=== PATIENT | male | born 1970 | race Hispanic/Latino ===

== ENCOUNTER 2018-06-10 09:31 | Inpatient (IN) | payer OTHER ==
[~2018-06-10] VITALS: Ht 160 cm; Wt 89.9 kg
[~2018-06-10 09:31] MED LIST: ASPIR 8181 MG PO; LIPITOR20 MG PO; LISINOPRIL10 MG PO; TOPROL XL50 MG PO
[2018-06-10] MEDS ORDERED: SODIUM CHLORIDE 0.9% 1000ML 1,000 ML IV STA (09:48)
[2018-06-10] MEDS ORDERED: CLINDAMYCIN 600MG / 50ML 50 ML IV STA (09:55)
[2018-06-10 12:07] LABS: BASOPHILS % 0.1 % (0.0-1.0); HEMATOCRIT 46.4 % (38.2-49.6); HEMOGLOBIN 17.3 g/dL (14.0-18.0); LYMPHOCYTES # (AUTO) 1.3 (1.0-3.2); LYMPHOCYTES % 9.1 % (18.0-39.1); MEAN CORPUSCULAR HEMOGLOBIN 33.1 pg (28-32); MEAN CORPUSCULAR HGB CONC 37.3 g/dL (31-35); MEAN CORPUSCULAR VOLUME 88.9 fL (81-99); MONOCYTES # (AUTO) 0.9 (0.2-0.8); MONOCYTES % 6.4 % (4.4-11.3); NEUTROPHILS # (AUTO) 12.2 (2.1-6.9); NEUTROPHILS % 84.1 % (38.7-80.0); PLATELET COUNT 170 x10e3/uL (140-360); RED BLOOD COUNT 5.22 x10e6/uL (4.3-5.7)
[2018-06-10 12:33] LABS: ALANINE AMINOTRANSFERASE 50 IU/L (0-55); ALBUMIN 4.3 g/dL (3.5-5.0); ALBUMIN/GLOBULIN RATIO 1.1 (0.8-2.0); ALKALINE PHOSPHATASE 62 IU/L (40-150); ANION GAP 18.6 mmol/L (8-16); BLOOD UREA NITROGEN 7 mg/dL (7-26); BUN/CREATININE RATIO 8 (6-25); CALCIUM 9.7 mg/dL (8.4-10.2); CARBON DIOXIDE 22 mmol/L (22-29); CHLORIDE 96 mmol/L (98-107); CREATININE, SERUM 0.85 mg/dL (0.72-1.25); EST GLOMERULAR FILTRATION RATE > 60 ML/MIN (60-); GLUCOSE 272 mg/dL (74-118); POTASSIUM 3.6 mmol/L (3.5-5.1); SODIUM 133 mmol/L (136-145)
[2018-06-10] MEDS ORDERED: ONDANSETRON HCL INJ 2 MG/ML VIAL IV STA (13:45)
[2018-06-10] MEDS ORDERED: MORPHINE SULFATE 2 MG/ML SYR IV STA (13:45)
[2018-06-10] MEDS ORDERED: BUPIVACAINE HCL 0.5% 10ML MPF VIAL INJ ONE (14:30)
--- NOTE | 2018-06-10 14:30 | Diagnostic Imaging Report ---
EXAMINATION: CT of the neck with contrast HISTORY: Facial swelling, tooth infection, evaluate for Ludin's angina. COMPARISON: None TECHNIQUE: Multidetector helical axial images were obtained from the sternal notch through the skull base during intravenous infusion of iodinated contrast material. Images were reconstructed using soft tissue and bone algorithms and were viewed in multiplanar format. Intravenous contrast: 100 mL of Isovue-370. Dose modulation, iterative reconstruction, and/or weight based adjustment of the mA/kV was utilized to reduce the radiation dose to as low as reasonably achievable. FINDINGS: Soft tissues: Dental cavity and periapical lucencies/abscess about the root of tooth #21, with thinning of the lingual cortex and associated overlying soft tissue, the swelling is extending to the left sublingual space, left floor of the mouth and oropharynx, no discrete soft tissue abscess. The airway is preserved and there is no extension of the above-mentioned inflammatory process below the level of the hyoid bone. Mass: None. Nodes: Moderately prominent likely reactive left submandibular and left level 2A, 2B and 3 enhancing lymph nodes Sinuses: Imaged portions unremarkable. Oral cavity: Unremarkable. Salivary glands: Mild swelling of the left submandibular gland, likely related to above-mentioned Artery changes, the right submandibular and bilateral parotid glands are normal. Pharynx: Unremarkable. Larynx: Unremarkable. Thyroid gland: Unremarkable. Upper esophagus: Unremarkable. Blood vessels: Unremarkable. Bones: Unremarkable. IMPRESSION: 1. Left tooth #21 dental cavity and periapical lucency with overlying cellulitis, no abscess. 2. Mildly prominent likely reactive left/sided cervical lymph nodes. Signed by: Dr. Elise Barahona M.D. on 06/10/2018 2:26 PM
[2018-06-10] MEDS ORDERED: SODIUM CHLORIDE 0.9% 50ML 50 ML ONE (14:47)
[2018-06-10] MEDS ORDERED: IOPAMIDOL 370 MG/ML 200 ML INFUS..BTL INJ ONE (14:47)
[2018-06-10] MEDS ORDERED: VANCOMYCIN 1GM/NS 250 ML 250 ML IV STA (15:40)
[2018-06-10] MEDS ORDERED: METHYLPREDNISOLONE SOD SUCC 125 MG/2ML VIAL IV ONE (15:45)
[2018-06-10] MEDS ORDERED: EPINEPHRINE 2.25% INH NEBU SOL 0.5 ML VIAL INH STA (15:51)
[2018-06-10] MEDS ORDERED: MORPHINE SULFATE 2 MG/ML SYR IV PRN (17:15)
[2018-06-10] MEDS ORDERED: DEXTROSE 50% SYRINGE 50 ML IV PRN (17:15)
[2018-06-10] MEDS: SODIUM CHLORIDE 0.9% 1000ML 1,000 ML IV SCH (18:07)
[2018-06-10] MEDS: VANCOMYCIN 1GM/NS 250 ML 250 ML IV SCH (18:37)
[2018-06-10 19:39] VITALS: BP 167/96
[2018-06-10 20:00] VITALS: BP 167/96
[2018-06-10 20:59] VITALS: BP 167/96
[2018-06-10] MEDS: CLINDAMYCIN PHOS 900MG/ 50ML 50 ML IV SCH (21:33)
[2018-06-10] MEDS: HYDRALAZINE HCL 20 MG/ML VIAL IV PRN (21:33)
[2018-06-10] MEDS: INSULIN REGULAR, HUMAN 100 UNIT/1 ML 3ML VIAL SQ SCH (21:37)
[2018-06-10 23:50] VITALS: BP 115/76
[2018-06-11] VITALS (7 sets, daily range): BP systolic 114–130; BP diastolic 71–85
[2018-06-11] MEDS: SODIUM CHLORIDE 0.9% 1000ML 1,000 ML IV SCH ×4 (00:44→22:16)
[2018-06-11] MEDS: CLINDAMYCIN PHOS 900MG/ 50ML 50 ML IV SCH ×2 (04:56→13:53)
[2018-06-11 05:03] LABS: BASOPHILS % 0.1 % (0.0-1.0); HEMATOCRIT 42.4 % (38.2-49.6); HEMOGLOBIN 15.3 g/dL (14.0-18.0); LYMPHOCYTES # (AUTO) 1.2 (1.0-3.2); LYMPHOCYTES % 8.7 % (18.0-39.1); MEAN CORPUSCULAR HEMOGLOBIN 32.8 pg (28-32); MEAN CORPUSCULAR HGB CONC 36.1 g/dL (31-35); MEAN CORPUSCULAR VOLUME 90.8 fL (81-99); MONOCYTES # (AUTO) 0.5 (0.2-0.8); MONOCYTES % 3.8 % (4.4-11.3); NEUTROPHILS % 86.7 % (38.7-80.0); PLATELET COUNT 176 x10e3/uL (140-360); RED BLOOD COUNT 4.67 x10e6/uL (4.3-5.7); RED CELL DISTRIBUTION WIDTH 12.3 % (11.7-14.4)
[2018-06-11 05:31] LABS: ALANINE AMINOTRANSFERASE 34 IU/L (0-55); ALBUMIN 3.4 g/dL (3.5-5.0); ALBUMIN/GLOBULIN RATIO 0.9 (0.8-2.0); ALKALINE PHOSPHATASE 55 IU/L (40-150); ANION GAP 15.2 mmol/L (8-16); BLOOD UREA NITROGEN 11 mg/dL (7-26); BUN/CREATININE RATIO 14 (6-25); CALCIUM 9.1 mg/dL (8.4-10.2); CARBON DIOXIDE 21 mmol/L (22-29); CHLORIDE 105 mmol/L (98-107); CREATININE, SERUM 0.76 mg/dL (0.72-1.25); EST GLOMERULAR FILTRATION RATE > 60 ML/MIN (60-); GLUCOSE 226 mg/dL (74-118); POTASSIUM 4.2 mmol/L (3.5-5.1); SODIUM 137 mmol/L (136-145)
[2018-06-11] MEDS: VANCOMYCIN 1GM/NS 250 ML 250 ML IV SCH ×2 (05:42→17:22)
--- NOTE | 2018-06-11 07:30 | Diagnostic Imaging Report ---
EXAMINATION: CHEST SINGLE (PORTABLE) INDICATION: Ludin's Angina COMPARISON: None FINDINGS: TUBES and LINES: None. LUNGS: Lungs are moderately inflated. Lungs are clear. There is no evidence of pneumonia or pulmonary edema. PLEURA: No pleural effusion or pneumothorax. HEART AND MEDIASTINUM: The cardiomediastinal silhouette is unremarkable. Device projects over the left ventricle. No evidence of soft tissue gas within the lower neck or mediastinum. BONES AND SOFT TISSUES: No acute osseous lesion. Soft tissues are unremarkable. UPPER ABDOMEN: No free air under the diaphragm. IMPRESSION: No acute thoracic abnormality. Signed by: Dr. Estefanía Orosco MD on 06/11/2018 7:26 AM
[2018-06-11] MEDS: INSULIN REGULAR, HUMAN 100 UNIT/1 ML 3ML VIAL SQ SCH ×4 (07:45→20:06)
--- NOTE | 2018-06-11 10:31 | Consultation ---
DATE OF CONSULTATION: June 11, 2018 CARDIOLOGY CONSULTATION REASON FOR CONSULTATION: ILR interrogation. HISTORY OF PRESENT ILLNESS: This is a 47-year-old man with a history of diabetes mellitus, hypertension, and hyperlipidemia, who presented with complaints of left-sided jaw pain. He states he has been having pain and swelling in the left side of his jaw since Sunday. He went to the ER and was instructed to follow up with his dentist, who he saw on Sunday. On evaluation, the patient was instructed to present to the ER for IV antibiotics. CT of the neck demonstrated left tooth dental cavity and a periapical lucency with overlying cellulitis. No abscess. There was mildly prominent likely left-sided cervical lymph nodes. The patient was therefore admitted for IV antibiotics. Cardiology was consulted for management of the patient's ILR. The patient denies any chest pain, shortness of breath, palpitations, edema, orthopnea, or PND. REVIEW OF SYSTEMS: Negative except as per HPI. PAST MEDICAL HISTORY: Hypertension, diabetes mellitus, hyperlipidemia. PAST SURGICAL HISTORY: Denied. ALLERGIES: PLEASE SEE EMR. MEDICATIONS: Please see medication list. SOCIAL HISTORY: Denies tobacco, alcohol or illicit drugs. FAMILY HISTORY: Noncontributory. PHYSICAL EXAMINATION VITALS: Temperature 98.5 degrees, pulse 88, respiratory rate 20, blood pressure 114/79, oxygen saturation 97% on room air. GENERAL: A well-developed, well-nourished man in no acute distress. HEENT: Normocephalic and atraumatic. Pupils are equal. No scleral icterus. NECK: Supple. Left-sided swelling is noted. No carotid bruits. LUNGS: Clear to auscultation bilaterally. No wheezes or crackles. CARDIOVASCULAR: Normal rate. Regular rhythm. No murmur. Normal S1 and S2. ABDOMEN: Soft and nontender. EXTREMITIES: No edema. NEURO: Nonfocal exam. LABS: WBC 13.83, hemoglobin 15.3, hematocrit 42.4, and platelets 176,000. Sodium 137, potassium 4.2, chloride 105, CO2 21, BUN 11, creatinine 0.76. Telemetry is sinus tachycardia. Chest x-ray with no acute thoracic abnormality. IMPRESSION 1. Dental pain and abscess. 2. Status post implantable loop recorder. 3. Diabetes mellitus. 4. Hypertension. 5. Hyperlipidemia. RECOMMENDATIONS: Continue monitoring the patient on telemetry. IV antibiotics per primary service. ILR interrogation has been ordered. The patient had a stress test and echocardiogram earlier this year, which were unremarkable. Further recommendations pending ILR interrogation. Continue home cardiac medications. Thank you for this consult. We will continue to follow. Job#: [id number] TOBY
--- NOTE | 2018-06-11 15:03 | Consultation ---
DATE OF CONSULTATION: REASON FOR CONSULTATION: Tooth abscess, soft tissue swelling. HISTORY OF PRESENT ILLNESS: This patient is a very pleasant 47-year-old male. He does have history of diabetes mellitus and obesity. He started to have some tooth pain on Sunday. He waited until Sunday to see a dentist, who told him he go to emergency room. To the emergency room he went and they gave him oral antibiotic and discharged him. The patient went back to his dentist, who told him again he go to emergency room because of the pain. He came here. Patient was seen by ER doctor. I and D was done locally. He is being admitted. PAST MEDICAL HISTORY: Diabetes mellitus, hypertension. PAST SURGICAL HISTORY: Denies. ALLERGIES: NKA. SOCIAL HISTORY: There is no smoking, drug abuse, or alcohol abuse. FAMILY HISTORY: Diabetes. REVIEW OF SYSTEMS HEENT: Negative. Patient difficulty with swallowing. PULMONARY: Negative. No shortness of breath. CARDIAC: Negative. : Negative. All other systems within normal limit. LABORATORY DATA: White count 13.8, hemoglobin 15.3. Glucose 226. PHYSICAL EXAMINATION GENERAL: He is alert, oriented. Does not seem to be in acute distress. VITAL SIGNS: Stable, currently afebrile. HEENT: He is not pale or icteric. Head normocephalic. There is swelling submandibular. There is no fluctuation. There is most likely soft tissue edema. There is also swelling noted inside the mouth in the posterior part of the jaw on the right side. NECK: Supple. No JVD. No lymphadenopathy. No thyromegaly. CHEST: Clear bilateral. HEART: S1, S2. No S3, S4, or murmur. ABDOMEN: Soft. Bowel sounds present. No tenderness. EXTREMITIES: No edema. IMPRESSION: Tooth abscess. We will put him on vancomycin and Zosyn. We will see how he is going to do over the next 24 to 48 hours. We will follow with you. Further recommendations to follow. Job#: [id number] SUB
[2018-06-11] MEDS: PIPER-TAZ 3.375 GM 50 ML IV SCH ×2 (16:19→23:12)
[2018-06-11] MEDS: MORPHINE SULFATE INJ 4 MG/ML INJ IV PRN (19:27)
[2018-06-11] MEDS: ONDANSETRON HCL INJ 2 MG/ML VIAL IV PRN (19:27)
[2018-06-12] VITALS (9 sets, daily range): BP systolic 127–148; BP diastolic 80–100
[2018-06-12] MEDS: ONDANSETRON HCL INJ 2 MG/ML VIAL IV PRN (02:29)
[2018-06-12] MEDS: MORPHINE SULFATE INJ 4 MG/ML INJ IV PRN ×2 (02:29→19:30)
[2018-06-12] MEDS: PIPER-TAZ 3.375 GM 50 ML IV SCH ×4 (04:45→23:39)
[2018-06-12] MEDS: VANCOMYCIN 1GM/NS 250 ML 250 ML IV SCH ×2 (05:15→18:31)
[2018-06-12] MEDS: INSULIN REGULAR, HUMAN 100 UNIT/1 ML 3ML VIAL SQ SCH ×4 (07:53→20:18)
[2018-06-12] MEDS: SODIUM CHLORIDE 0.9% 1000ML 1,000 ML IV SCH ×2 (08:53→17:38)
[2018-06-12] MEDS: METOPROLOL SUCCINATE 50 MG TAB XL PO SCH (10:15)
--- NOTE | 2018-06-12 10:25 | Progress Note ---
DATE: June 12, 2018 SUBJECTIVE: No major events overnight. Still has pain in his left face and jaw. Denies any chest pain, palpitations or shortness of breath. REVIEW OF SYSTEMS: Positive for pain in his neck and jaw, otherwise negative. OBJECTIVE VITAL SIGNS: Temperature 98.1, pulse 71, blood pressure 144/91, satting 97% on room air. GENERAL: Well-developed, well-nourished, male in no acute distress. CARDIOVASCULAR: Regular rate and rhythm. No murmurs, rubs or gallops. PMI nondisplaced. Palpable carotid pulses. Palpable radial pulses. Palpable pedal pulses. No lower extremity edema or varicosities. PULMONARY: Lungs are clear to auscultation bilaterally. ABDOMEN: Soft, nontender and nondistended. NEURO AND PSYCH: The patient is alert and oriented to person, place and time. Normal affect. MEDICATIONS: Reviewed. LABORATORY DATA: Reviewed. IMAGING DATA: Reviewed. TELEMETRY DATA: Reviewed. Shows normal sinus rhythm with occasional sinus tachycardia. ASSESSMENT AND PLAN 1. Dental pain and abscess. 2. Status post implantable loop recorder. 3. Diabetes. 4. Hypertension. 5. Hyperlipidemia. RECOMMENDATIONS: Continue telemetry. IV antibiotics per primary service. ILR interrogation has been ordered, still pending. The patient had a stress test and echocardiogram earlier this year, which were normal. So far on telemetry, no arrhythmia noted. Will provide further recommendations on ILR interrogation. Continue home metoprolol. Thank you for this consult. Will continue to follow. Job#: [id number]
[2018-06-12] MEDS ORDERED: ACETAMINOPHEN 325 MG/10 ML UDC PO PRN (19:30)
[2018-06-12] MEDS ORDERED: SODIUM CHLORIDE 0.9% 50ML 50 ML ONE (23:32)
[2018-06-13] VITALS (9 sets, daily range): BP systolic 130–170; BP diastolic 82–93
[2018-06-13] MEDS ORDERED: PIPERACILLIN/TAZOBAC 3.375 GM in SODIUM CHLORIDE 0.9% 50ML 50 ML IV SCH ×2
[2018-06-13] MEDS ORDERED: SODIUM CHLORIDE 0.9% 50ML 50 ML ONE (03:37)
[2018-06-13] MEDS: SODIUM CHLORIDE 0.9% 1000ML 1,000 ML IV SCH ×2 (03:52→19:00)
[2018-06-13] MEDS: PIPER-TAZ 3.375 GM 50 ML IV SCH ×4 (05:38→23:23)
[2018-06-13] MEDS: VANCOMYCIN 1GM/NS 250 ML 250 ML IV SCH (06:18)
[2018-06-13] MEDS: MORPHINE SULFATE INJ 4 MG/ML INJ IV PRN ×3 (07:11→21:38)
[2018-06-13] MEDS: ONDANSETRON HCL INJ 2 MG/ML VIAL IV PRN ×2 (07:11→15:21)
[2018-06-13] MEDS: INSULIN REGULAR, HUMAN 100 UNIT/1 ML 3ML VIAL SQ SCH ×4 (07:30→21:25)
[2018-06-13] MEDS: METOPROLOL SUCCINATE 50 MG TAB XL PO SCH (08:25)
--- NOTE | 2018-06-13 12:42 | Progress Note ---
DATE: June 13, 2018 CARDIOLOGY PROGRESS NOTE SUBJECTIVE: The patient denies chest pain or shortness of breath. He reports his swelling is improving. OBJECTIVE VITAL SIGNS: Temperature 99 degrees, pulse 67, respiratory rate 18, blood pressure 150/89, oxygen saturation 95% on room air. GENERAL: Well-developed, well-nourished man, in no acute distress. Awake and alert. LUNGS: Clear to auscultation bilaterally. No wheezes or crackles. CARDIOVASCULAR: Normal rate, regular rhythm. No murmur. Normal S1, S2. ABDOMEN: Soft, nontender. EXTREMITIES: No edema. CARDIAC MEDICATIONS: Metoprolol succinate 50 mg p.o. daily. LABS: None today. TELEMETRY: Normal sinus rhythm. IMPRESSION 1. Dental pain and abscess. 2. Status post implantable loop recorder. 3. Diabetes mellitus. 4. Hypertension. 5. Hyperlipidemia. RECOMMENDATIONS: Continue monitoring the patient on telemetry. IV antibiotics per infectious disease. Continue home cardiac medications. Other than ILR interrogation, increase metoprolol. Patient had stress test and echocardiogram earlier this year, which were normal. No further cardiac evaluation is indicated at this time. Thank you for this consult. We will continue to follow. Job#: [id number] VAS
[2018-06-13] MEDS: VANCOMYCIN HCL 1.5 GM in SODIUM CHLORIDE 0.9% 250ML 300 ML IV SCH (19:12)
[2018-06-14 00:35] VITALS: BP 159/91
[2018-06-14] MEDS: MORPHINE SULFATE INJ 4 MG/ML INJ IV PRN (05:03)
[2018-06-14] MEDS: PIPER-TAZ 3.375 GM 50 ML IV SCH ×2 (05:08→11:53)
[2018-06-14] MEDS: VANCOMYCIN HCL 1.5 GM in SODIUM CHLORIDE 0.9% 250ML 300 ML IV SCH (05:40)
[2018-06-14 05:54] VITALS: BP 145/72
[2018-06-14] MEDS: INSULIN REGULAR, HUMAN 100 UNIT/1 ML 3ML VIAL SQ SCH ×3 (07:30→16:30)
[2018-06-14 08:20] VITALS: BP 173/95
[2018-06-14] MEDS: HYDRALAZINE HCL 20 MG/ML VIAL IV PRN (08:46)
[2018-06-14] MEDS ORDERED: METOPROLOL SUCCINATE 50 MG TAB XL PO SCH (09:00)
[2018-06-14 11:06] VITALS: BP 173/95
[2018-06-14] MEDS ORDERED: LISINOPRIL 20 MG TAB PO SCH (11:30)
[2018-06-14] MEDS ORDERED: AUGMENTIN 875-1 EACH PO (11:31)
[2018-06-14] MEDS ORDERED: DOXYCYCLINE HY100 MG PO (11:33)
[2018-06-14 12:34] VITALS: BP 160/91
--- NOTE | 2018-06-14 12:41 | Progress Note ---
DATE: June 14, 2018 CARDIOLOGY PROGRESS NOTE SUBJECTIVE: The patient denies chest pain or shortness of breath. OBJECTIVE VITAL SIGNS: Temperature 97.9 degrees, pulse 62, respiratory rate 20, blood pressure 173/95, oxygen saturation 97% on room air. GENERAL: Well-developed, well-nourished man, in no acute distress. Awake and alert. LUNGS: Clear to auscultation bilaterally. No wheezes or crackles. CARDIOVASCULAR: Normal rate, regular rhythm. No murmur. Normal S1, S2. ABDOMEN: Soft, nontender. EXTREMITIES: No edema. CARDIAC MEDICATIONS: Metoprolol succinate 100 mg p.o. daily. LABS: None today. TELEMETRY: Normal sinus rhythm. IMPRESSION 1. Dental pain and abscess. 2. Status post implantable loop recorder. 3. Diabetes mellitus. 4. Hypertension. 5. Hyperlipidemia. RECOMMENDATIONS: Monitor the patient on telemetry. IV antibiotics per infectious disease. We will resume the patient's outpatient atorvastatin and Lipitor. The patient had a stress test and echocardiogram earlier this year, which were normal. No further cardiac evaluation is indicated at this time. Thank you for this consult. We will continue to follow. Job#: [id number]
[2018-06-14 16:12] VITALS: BP 167/92
[2018-06-14] MEDS ORDERED: ATORVASTATIN 20 MG TAB PO SCH (21:00)
== END 2018-06-14 16:33 | disposition home or self-care (01) | DRG 137 ==
LOC: ER 09:31 → ERHOLD 17:46 → IMCU 18:34 → MED/SURG 06-12 14:08
PROC: 0W930ZZ Drainage of Oral Cavity and Throat, Open Approach (ICD-10-PCS; principal; 2018-06-11)
PROC: 4B02XTZ Measurement of Cardiac Defibrillator, External Approach (ICD-10-PCS; 2018-06-11)
DX: K04.7 Periapical abscess without sinus (principal); K12.2 Cellulitis and abscess of mouth; I10 Essential (primary) hypertension; E78.5 Hyperlipidemia, unspecified; Z95.818 Presence of other cardiac implants and grafts; Z79.4 Long term (current) use of insulin; R00.0 Tachycardia, unspecified; D72.829 Elevated white blood cell count, unspecified; I25.10 Atherosclerotic heart disease of native coronary artery without angina pectoris
CPT/HCPCS: 36415; 70491; 71045; 80053; 80202; 82948; 83605; 85025; 87040; 96372; 99284; J0360; J2270; J2405; J2543; J2930; J3370; J7030; J7050; Q9967

== ENCOUNTER → 2018-09-02 | Day surgery (SDC) | payer OTHER ==
[~2018-09-02] VITALS: Ht 162.6 cm; Wt 82.6 kg
[~2018-09-02] MED LIST changes: +AUGMENTIN 875-1 EACH PO; +DOXYCYCLINE HY100 MG PO; +FENTANYL CITRATE/PF 100MCG/2 ML INJ ONE; +GLIPIZIDE5 MG PO; +HYDROCHLOROTHIA25 MG PO; +LIDOCAINE 1% W/EPINEPHRINE 20 ML VIAL ONE; +METFORMIN HCL500 MG PO
[2018-09-02 07:06] VITALS: BP 136/94
[2018-09-02 08:15] VITALS: BP 140/88
[2018-09-02 08:20] VITALS: BP 144/87
[2018-09-02 08:25] VITALS: BP 138/92
[2018-09-02 08:30] VITALS: BP 145/80
--- NOTE | 2018-09-02 09:37 | Operative Report ---
DATE OF PROCEDURE: September 02, 2018 INDICATIONS: End of life ILR. PROCEDURE PERFORMED: Explant of internal loop recorder. COMPLICATIONS: None. RECOMMENDATIONS: Medical therapy. The left anterior chest was anesthetized using 15 mL of lidocaine. Skin incision was made. The ILR was identified and freed from its capsule and explanted. Subcutaneous tissue approximated using Vicryl. Skin approximated using Dermabond. The patient was discharged home same day. Job#: [id number] RI
== END | disposition home or self-care (01) ==
LOC: CATH LAB 06:56
PROVIDERS: ATTEND Internal Medicine Cardiovascular Disease
DX: Z45.09 Encounter for adjustment and management of other cardiac device (principal); R00.2 Palpitations; I10 Essential (primary) hypertension; I44.7 Left bundle-branch block, unspecified; E78.5 Hyperlipidemia, unspecified; E11.9 Type 2 diabetes mellitus without complications; Z79.4 Long term (current) use of insulin; Z79.84 Long term (current) use of oral hypoglycemic drugs; Z95.5 Presence of coronary angioplasty implant and graft; Z79.82 Long term (current) use of aspirin
CPT/HCPCS: 33284

== ENCOUNTER 2020-10-15 13:17 | Emergency (ER) | payer OTHER ==
[~2020-10-15] VITALS: Ht 162.6 cm; Wt 82.6 kg
[~2020-10-15 13:17] MED LIST changes: -FENTANYL CITRATE/PF 100MCG/2 ML INJ ONE; -LIDOCAINE 1% W/EPINEPHRINE 20 ML VIAL ONE
[2020-10-15 14:35] LABS: BASOPHILS # (AUTO) 0.1 (0.0-0.1); BASOPHILS % 0.6 % (0.0-1.0); EOSINOPHILS # (AUTO) 0.1 (0.0-0.4); EOSINOPHILS % 0.6 % (0.0-6.0); HEMATOCRIT 47.3 % (38.2-49.6); HEMOGLOBIN 17.6 g/dL (14.0-18.0); LYMPHOCYTES # (AUTO) 2.9 (1.0-3.2); LYMPHOCYTES % 32.7 % (18.0-39.1); MEAN CORPUSCULAR HEMOGLOBIN 33.1 pg (28-32); MEAN CORPUSCULAR HGB CONC 37.2 g/dL (31-35); MEAN CORPUSCULAR VOLUME 88.9 fL (81-99); MONOCYTES # (AUTO) 0.5 (0.2-0.8); MONOCYTES % 5.7 % (4.4-11.3); NEUTROPHILS # (AUTO) 5.3 (2.1-6.9); NEUTROPHILS % 60.1 % (38.7-80.0); PLATELET COUNT 233 x10e3/uL (140-360); RED BLOOD COUNT 5.32 x10e6/uL (4.3-5.7)
[2020-10-15 14:46] LABS: ALANINE AMINOTRANSFERASE 46 IU/L (0-55); ALBUMIN 4.4 g/dL (3.5-5.0); ALBUMIN/GLOBULIN RATIO 1.3 (0.8-2.0); ALKALINE PHOSPHATASE 85 IU/L (40-150); ANION GAP 19.5 mmol/L (8-16); BLOOD UREA NITROGEN 14 mg/dL (7-26); BUN/CREATININE RATIO 17 (6-25); CALCIUM 9.2 mg/dL (8.4-10.2); CARBON DIOXIDE 19 mmol/L (22-29); CHLORIDE 99 mmol/L (98-107); CREATININE, SERUM 0.81 mg/dL (0.72-1.25); EST GLOMERULAR FILTRATION RATE > 60 ML/MIN (60-); GLUCOSE 132 mg/dL (74-118); POTASSIUM 3.5 mmol/L (3.5-5.1); SODIUM 134 mmol/L (136-145)
[2020-10-15 15:10] LABS: CLARITY,URINE CLEAR (CLEAR); COLOR,URINE YELLOW (YELLOW); KETONES,URINE NEGATIVE (NEGATIVE); LEUKOCYTE ESTERASE ,URINE NEGATIVE (NEGATIVE); NITRITE,URINE NEGATIVE (NEGATIVE); PROTEIN,URINE DIPSTICK NEGATIVE (NEGATIVE); URINE UROBILINOGEN 0.2 mg/dL (0.2 - 1)
[2020-10-15 15:14] LABS: BACTERIA,URINE RARE /HPF; RBC,URINE 0-5 /HPF (0-5); WBC,URINE (MAN) 0-5 /HPF (0-5)
[2020-10-15 15:15] LABS: MUCUS,URINE FEW (RARE)
[2020-10-15 17:01] VITALS: BP 126/95
== END 2020-10-15 17:06 | disposition home or self-care (01) ==
LOC: ER 13:52
DX: I44.7 Left bundle-branch block, unspecified (principal); R53.1 Weakness; I10 Essential (primary) hypertension; E11.9 Type 2 diabetes mellitus without complications; E78.5 Hyperlipidemia, unspecified; Z79.82 Long term (current) use of aspirin; Z79.84 Long term (current) use of oral hypoglycemic drugs
CPT/HCPCS: 36415; 70450; 71045; 80053; 81001; 85025; 93005; 99284

== ENCOUNTER → 2020-10-26 | Emergency (ER) | payer OTHER ==
[~2020-10-26] VITALS: Ht 162.6 cm; Wt 82.6 kg
== END | disposition home or self-care (01) ==
LOC: ER 13:23
DX: R53.1 Weakness (principal); I10 Essential (primary) hypertension; E11.9 Type 2 diabetes mellitus without complications; E78.5 Hyperlipidemia, unspecified
CPT/HCPCS: 99283

== ENCOUNTER → 2020-11-18 | Day surgery (SDC) | payer OTHER ==
[2020-11-15 11:11] LABS: BASOPHILS % 0.6 % (0.0-1.0); EOSINOPHILS % 0.6 % (0.0-6.0); HEMATOCRIT 45.9 % (38.2-49.6); HEMOGLOBIN 16.7 g/dL (14.0-18.0); LYMPHOCYTES # (AUTO) 1.8 (1.0-3.2); LYMPHOCYTES % 33.4 % (18.0-39.1); MEAN CORPUSCULAR HEMOGLOBIN 32.4 pg (28-32); MEAN CORPUSCULAR HGB CONC 36.4 g/dL (31-35); MEAN CORPUSCULAR VOLUME 89.1 fL (81-99); MONOCYTES # (AUTO) 0.2 (0.2-0.8); MONOCYTES % 4.2 % (4.4-11.3); NEUTROPHILS # (AUTO) 3.2 (2.1-6.9); NEUTROPHILS % 60.8 % (38.7-80.0); PLATELET COUNT 170 x10e3/uL (140-360); RED BLOOD COUNT 5.15 x10e6/uL (4.3-5.7); RED CELL DISTRIBUTION WIDTH 11.9 % (11.7-14.4)
[2020-11-15 11:31] LABS: ALANINE AMINOTRANSFERASE 35 IU/L (0-55); ALBUMIN 4.1 g/dL (3.5-5.0); ALBUMIN/GLOBULIN RATIO 1.3 (0.8-2.0); ALKALINE PHOSPHATASE 67 IU/L (40-150); BLOOD UREA NITROGEN 17 mg/dL (7-26); BUN/CREATININE RATIO 21 (6-25); CALCIUM 8.9 mg/dL (8.4-10.2); CARBON DIOXIDE 22 mmol/L (22-29); CHLORIDE 99 mmol/L (98-107); CREATININE, SERUM 0.82 mg/dL (0.72-1.25); EST GLOMERULAR FILTRATION RATE > 60 ML/MIN (60-); GLUCOSE 241 mg/dL (74-118); SODIUM 132 mmol/L (136-145)
[2020-11-18] VITALS (7 sets, daily range): BP systolic 91–136; BP diastolic 38–77
[~2020-11-18] MED LIST changes: +ALPRAZOLAM 0.5 MG TAB ONE; +DIPHENHYDRAMINE HCL 25 MG CAP ONE; +FENTANYL CITRATE/PF 100MCG/2 ML INJ ONE; +HEPARIN SOD/SOD CHLORIDE 2,000 ML ONE; +IOPAMIDOL 370 MG/ML 200 ML INFUS..BTL INJ ONE; +LIDOCAINE HCL 2% LOCAL 20 ML VIAL ONE; +LISINOPRIL-HCT1 EACH PO; +METOPROLOL SUCC50 MG PO; +MIDAZOLAM HCL 2 MG/2 ML VIAL ONE; +SODIUM CHLORIDE 0.9% 1000ML 1,000 ML ONE
== END | disposition home or self-care (01) ==
LOC: CATH LAB 11:25
PROVIDERS: ATTEND Internal Medicine Interventional Cardiology
DX: I25.118 Atherosclerotic heart disease of native coronary artery with other forms of angina pectoris (principal); I10 Essential (primary) hypertension; I49.3 Ventricular premature depolarization; E11.8 Type 2 diabetes mellitus with unspecified complications; Z01.812 Encounter for preprocedural laboratory examination; Z20.822 Contact with and (suspected) exposure to COVID-19; Z79.84 Long term (current) use of oral hypoglycemic drugs; Z79.82 Long term (current) use of aspirin; Z68.30 Body mass index [BMI] 30.0-30.9, adult
CPT/HCPCS: 36415; 76937; 80053; 85025; 93454; C1887; J2001; J2250; J3010; J7030; Q9967; U0002; 99152

== ENCOUNTER 2021-01-18 18:17 | Emergency (ER) | payer OTHER ==
[~2021-01-18] VITALS: Ht 162.6 cm; Wt 82.6 kg
[~2021-01-18 18:17] MED LIST changes: -ALPRAZOLAM 0.5 MG TAB ONE; -DIPHENHYDRAMINE HCL 25 MG CAP ONE; -FENTANYL CITRATE/PF 100MCG/2 ML INJ ONE; -HEPARIN SOD/SOD CHLORIDE 2,000 ML ONE; -IOPAMIDOL 370 MG/ML 200 ML INFUS..BTL INJ ONE; -LIDOCAINE HCL 2% LOCAL 20 ML VIAL ONE; -MIDAZOLAM HCL 2 MG/2 ML VIAL ONE; -SODIUM CHLORIDE 0.9% 1000ML 1,000 ML ONE
[2021-01-18 18:54] LABS: BASOPHILS # (AUTO) 0.1 (0.0-0.1); BASOPHILS % 0.6 % (0.0-1.0); EOSINOPHILS # (AUTO) 0.1 (0.0-0.4); EOSINOPHILS % 0.7 % (0.0-6.0); HEMATOCRIT 45.9 % (38.2-49.6); LYMPHOCYTES # (AUTO) 3.4 (1.0-3.2); MEAN CORPUSCULAR HEMOGLOBIN 32.3 pg (28-32); MEAN CORPUSCULAR VOLUME 87.3 fL (81-99); MONOCYTES # (AUTO) 0.6 (0.2-0.8); MONOCYTES % 6.3 % (4.4-11.3); NEUTROPHILS # (AUTO) 5.3 (2.1-6.9); PLATELET COUNT 201 x10e3/uL (140-360); RED BLOOD COUNT 5.26 x10e6/uL (4.3-5.7); RED CELL DISTRIBUTION WIDTH 12.4 % (11.7-14.4)
[2021-01-18 19:16] LABS: ALANINE AMINOTRANSFERASE 34 IU/L (0-55); ALBUMIN 4.3 g/dL (3.5-5.0); ALBUMIN/GLOBULIN RATIO 1.2 (0.8-2.0); ALKALINE PHOSPHATASE 80 IU/L (40-150); ANION GAP 16.2 mmol/L (8-16); BLOOD UREA NITROGEN 15 mg/dL (7-26); BUN/CREATININE RATIO 19 (6-25); CALCIUM 9.5 mg/dL (8.4-10.2); CARBON DIOXIDE 25 mmol/L (22-29); CHLORIDE 99 mmol/L (98-107); CREATINE KINASE 88 IU/L (30-200); CREATININE, SERUM 0.79 mg/dL (0.72-1.25); EST GLOMERULAR FILTRATION RATE > 60 ML/MIN (60-); GLUCOSE 118 mg/dL (74-118); POTASSIUM 3.2 mmol/L (3.5-5.1); SODIUM 137 mmol/L (136-145)
[2021-01-18 20:22] VITALS: BP 142/79
== END 2021-01-18 20:24 | disposition home or self-care (01) ==
LOC: ER 20:04
DX: R07.9 Chest pain, unspecified (principal); R20.0 Anesthesia of skin; R94.31 Abnormal electrocardiogram [ECG] [EKG]; I10 Essential (primary) hypertension; E11.9 Type 2 diabetes mellitus without complications; E78.5 Hyperlipidemia, unspecified
CPT/HCPCS: 36415; 71045; 80053; 82550; 82553; 84484; 85025; 93005; 99283

== ENCOUNTER 2022-07-04 10:36 | Observation (INO) | payer BC, OTHER ==
[~2022-07-04] VITALS: Ht 162.6 cm; Wt 82.6 kg
[2022-07-04 11:00] LABS: BASOPHILS % 0.4 % (0.0-1.0); EOSINOPHILS # (AUTO) 0.1 (0.0-0.4); EOSINOPHILS % 0.8 % (0.0-6.0); HEMATOCRIT 51.4 % (38.2-49.6); HEMOGLOBIN 18.3 g/dL (14.0-18.0); LYMPHOCYTES # (AUTO) 2.6 (1.0-3.2); LYMPHOCYTES % 28.7 % (18.0-39.1); MEAN CORPUSCULAR HEMOGLOBIN 32.7 pg (28-32); MEAN CORPUSCULAR HGB CONC 35.6 g/dL (31-35); MEAN CORPUSCULAR VOLUME 91.9 fL (81-99); MONOCYTES # (AUTO) 0.5 (0.2-0.8); MONOCYTES % 5.3 % (4.4-11.3); NEUTROPHILS # (AUTO) 5.9 (2.1-6.9); NEUTROPHILS % 64.5 % (38.7-80.0); PLATELET COUNT 194 x10e3/uL (140-360); RED BLOOD COUNT 5.59 x10e6/uL (4.3-5.7); RED CELL DISTRIBUTION WIDTH 11.8 % (11.7-14.4)
[2022-07-04 11:28] LABS: ALBUMIN 4.4 g/dL (3.5-5.0); ALBUMIN/GLOBULIN RATIO 1.3 (0.8-2.0); CALCIUM 9.7 mg/dL (8.4-10.2); CREATININE, SERUM 0.88 mg/dL (0.72-1.25)
[2022-07-04 11:34] LABS: LIPASE 44 U/L (8-78)
[2022-07-04] MEDS ORDERED: ASPIRIN 81 MG CHEW TAB PO ONE ×2 (13:00)
[2022-07-04] MEDS ORDERED: FENOFIBRATE134 MG PO (14:04)
[2022-07-04] MEDS ORDERED: ATORVASTATIN CA20 MG PO (14:04)
[2022-07-04 14:46] LABS: CREATINE KINASE MB 0.6 ng/mL (0-5.0)
[2022-07-04 18:43] VITALS: BP 149/78
[2022-07-04 19:57] VITALS: BP 149/78
[2022-07-04 19:59] VITALS: BP 149/78
[2022-07-04 20:00] VITALS: BP 170/92
[2022-07-04] MEDS ORDERED: DICLOFENAC SODI50 MG PO (20:14)
[2022-07-04 21:33] LABS: CREATINE KINASE MB 0.5 ng/mL (0-5.0)
[2022-07-05 00:58] VITALS: BP 120/69
[2022-07-05 04:59] LABS: BASOPHILS # (AUTO) 0.1 (0.0-0.1); BASOPHILS % 0.6 % (0.0-1.0); EOSINOPHILS # (AUTO) 0.1 (0.0-0.4); EOSINOPHILS % 1.3 % (0.0-6.0); LYMPHOCYTES # (AUTO) 3.8 (1.0-3.2); LYMPHOCYTES % 37.7 % (18.0-39.1); MEAN CORPUSCULAR HEMOGLOBIN 32.9 pg (28-32); MONOCYTES # (AUTO) 0.7 (0.2-0.8); MONOCYTES % 6.7 % (4.4-11.3); NEUTROPHILS # (AUTO) 5.3 (2.1-6.9); NEUTROPHILS % 53.2 % (38.7-80.0); PLATELET COUNT 182 x10e3/uL (140-360); RED BLOOD COUNT 5.17 x10e6/uL (4.3-5.7); RED CELL DISTRIBUTION WIDTH 11.9 % (11.7-14.4)
[2022-07-05 05:22] LABS: ANION GAP 17.1 mmol/L (8-16); CALCIUM 9.3 mg/dL (8.4-10.2); CREATININE, SERUM 0.87 mg/dL (0.72-1.25); POTASSIUM 4.1 mmol/L (3.5-5.1)
[2022-07-05 05:48] LABS: CREATINE KINASE MB 0.4 ng/mL (0-5.0)
[2022-07-05 06:09] LABS: CHOL/HDL RATIO 3.1 (3.9-4.7); MAGNESIUM 1.4 MG/DL (1.3-2.1)
[2022-07-05 06:10] VITALS: BP 121/75
[2022-07-05 06:22] LABS: THYROID STIMULATING HORMONE 1.422 uIU/mL (0.350-4.940)
[2022-07-05] MEDS ORDERED: ALPRAZOLAM 0.5 MG TAB PO PRN (08:45)
[2022-07-05] MEDS ORDERED: ALPRAZOLAM 0.5 MG TAB PO ONE (08:45)
[2022-07-05 08:49] VITALS: BP 126/77
[2022-07-05 08:53] VITALS: BP 126/77
[2022-07-05] MEDS ORDERED: HYDROCHLOROTHIAZIDE 25 MG TAB PO SCH (09:00)
[2022-07-05] MEDS ORDERED: FENOFIBRATE 145 MG TAB PO SCH (09:00)
[2022-07-05] MEDS ORDERED: METOPROLOL SUCCINATE 50 MG TAB XL PO SCH (09:00)
[2022-07-05] MEDS ORDERED: LISINOPRIL 20 MG TAB PO SCH (09:00)
[2022-07-05] MEDS ORDERED: ASPIRIN 81 MG CHEW TAB PO SCH (09:00)
[2022-07-05] MEDS ORDERED: METFORMIN HCL 500 MG TAB PO SCH (09:00)
[2022-07-05 13:24] VITALS: BP 115/76
[2022-07-05] MEDS ORDERED: ATORVASTATIN 20 MG TAB PO SCH (21:00)
[2022-07-06] MEDS ORDERED: ESCITALOPRAM OXALATE 10 MG TAB PO SCH (09:00)
== END 2022-07-05 14:13 | disposition home or self-care (01) ==
LOC: ER 10:40 → ERHOLD 12:55 → MED/SURG2 18:17
PROVIDERS: ADMIT Internal Medicine; ATTEND Internal Medicine
DX: R07.2 Precordial pain (principal); I45.10 Unspecified right bundle-branch block; I10 Essential (primary) hypertension; E11.9 Type 2 diabetes mellitus without complications; E78.2 Mixed hyperlipidemia; I25.10 Atherosclerotic heart disease of native coronary artery without angina pectoris; E66.9 Obesity, unspecified; Z68.31 Body mass index [BMI] 31.0-31.9, adult; Z95.818 Presence of other cardiac implants and grafts; Z98.61 Coronary angioplasty status; Z20.822 Contact with and (suspected) exposure to COVID-19; Z79.82 Long term (current) use of aspirin; Z79.84 Long term (current) use of oral hypoglycemic drugs
CPT/HCPCS: 36415 ×2; 71045; 80048; 80053; 80061; 82550 ×2; 82553 ×2; 82948 ×2; 83690; 83735; 83880; 84443; 84484 ×2; 85025 ×2; 93005; 94799 ×2; 99284; G0378 ×2; U0002